=== PATIENT | male | born 1960 | race Caucasian/White ===

== ENCOUNTER 2017-08-23 15:58 | Emergency (ER) | payer MEDICAID ==
[2017-08-23 17:06] VITALS: BP 132/80; PULSE 91; RESP 20; TEMP 97.9; O2SAT 96
--- NOTE | 2017-08-23 17:16 | C.PDOC ---
History Of Present Illness 57-year-old male, PMHx includes NIDDM, presents to the emergency department with complaints of 4-5 day duration of swelling to the posterior aspect of right leg. He took Advil for the pain today with minimal relief. he notes a Hx of similar symptoms about five years ago in axillary region. Patient denies fever, trauma, nausea/vomiting, or any other associated symptoms. Time Seen by Provider: 08/23/17 17:13 Chief Complaint (Nursing): Abnormal Skin Integrity History Per: Patient History/Exam Limitations: no limitations Past Medical History Reviewed: Historical Data, Nursing Documentation, Vital Signs Vital Signs: Last Vital Signs Temp 97.9 F 08/23/17 17:04 Pulse 91 H 08/23/17 17:04 Resp 20 08/23/17 17:04 BP 132/80 08/23/17 17:04 Pulse Ox 96 08/23/17 17:38 - Medical History PMH: Diabetes (type 2) Family History: States: No Known Family Hx - Social History Hx Tobacco Use: No Hx Alcohol Use: No Hx Substance Use: No Physical Exam - Physical Exam Appears: Non-toxic, No Acute Distress Skin: Normal Color, Warm, Dry, No Rash Extremity: Normal ROM, Tenderness, Capillary Refill (<2 seconds), No Deformity, Other (Posterior right leg with 6cm area of induration. Fluctuant, not draining. (+)erythema) Pulses: Left Dorsalis Pedis: Normal, Right Dorsalis Pedis: Normal ED Course And Treatment O2 Sat by Pulse Oximetry: 96 (RA) Pulse Ox Interpretation: Normal Disposition Counseled Patient/Family Regarding: Diagnosis, Need For Followup, Rx Given - Disposition Referrals: [facility] [Outside] Disposition: HOME/ ROUTINE Disposition Time: 17:45 Condition: STABLE Additional Instructions: FOLLOW UP WITH YOUR DOCTOR/CLINIC IN 1-2 DAYS USE MEDICATIONS DIRECTED RETURN TO EMERGENCY ROOM IF SYMPTOMS WORSEN SEGUIMIENTO CON JOHNSON MDICO / CLNICA EN 1-2 [place] USE MEDICAMENTOS SEGN LO INDICADO REGRESE AL LEONEL DE EMERGENCIA SI LOS SNTOMAS EMPEORAN Prescriptions: Cephalexin [Keflex] 500 mg PO BID #14 capsule Naproxen 375 mg PO BID PRN #20 tablet PRN Reason: pain Sulfamethoxazole/Trimethoprim [Bactrim DS 800 mg-160 mg] 1 tab PO BID #14 tab Instructions: Skin Abscess Forms: [employer] (K[place]akh) Print Language: [place] CITIZEN - Clinical Impression Clinical Impression: Abscess of leg - Scribe Statement The provider has reviewed the documentation as recorded by the Scribe (Jesus Alberto Laws) All medical record entries made by the Scribe were at my direction and personally dictated by me. I have reviewed the chart and agree that the record accurately reflects my personal performance of the history, physical exam, medical decision making, and the department course for this patient. I have also personally directed, reviewed, and agree with the discharge instructions and disposition.
[2017-08-23] MEDS ORDERED: Tmp-Smz 800 mg-160 mg DS Tab PO STA (17:34)
[2017-08-23] MEDS ORDERED: Naproxen 550 mg Tab PO STA (17:35)
[2017-08-23] MEDS ORDERED: Tmp-Smz 800 mg-160 mg DS Tab ONE (17:51)
[2017-08-23] MEDS ORDERED: Naproxen 550 mg Tab PO ONE (17:51)
== END 2017-08-23 18:00 | disposition home or self-care (01) ==
LOC: C.ER 15:58
DX: L02.415 Cutaneous abscess of right lower limb (principal)